=== PATIENT | male | born 1960 | race Caucasian/White ===

== ENCOUNTER 2019-12-17 13:44 | Emergency (ER) | payer BC ==
[2019-12-17] MEDS ORDERED: Bacitracin Oint 1 GM U/D Packet TOP ONE (14:06)
[2019-12-17] MEDS ORDERED: Bupivacaine 0.5%/EPINEPHrine 1:200,000 50 ML MDV NERVRT ONE (14:06)
--- NOTE | 2019-12-17 15:42 | EDM.PDOC ---
ED HPI GENERAL MEDICAL PROBLEM - General Chief Complaint: Laceration Stated Complaint: CHAINSAW CUT ON LEFT CHEEK Time Seen by Provider: 12/17/19 14:50 Source of Information: Reports: Patient, Family () History Limitations: Reports: No Limitations - History of Present Illness INITIAL COMMENTS - FREE TEXT/NARRATIVE: 59 year old male present to [facility] for evaluation of facial laceration. Patient clearing some brush at the cabin when the chain saw bounced off a small branch kick back and struck him on the left side of his face results in a laceration. Injured occurred at approximately 12: 30 this afternoon. Patient's state the chain saw struck his glasses and cut his left anterior lateral cheek. Patient has localized pain the area. He has not vision concerns, able to move all the muscle on the left side of his face and denies numbness. Patient noted the area bled at lot placed a pressure dressing and ice pack to control the bleeding. drove him to the ER which is approximately 1 hour from the cabin. Patient believes his tetanus shot is up to date. - Related Data Allergies Allergy/AdvReac Type Severity Reaction Status Date / Time No Known Allergies Allergy Verified 12/17/19 13:53 Home Meds: Home Meds Omeprazole 20 mg PO BEDTIME 12/17/19 [History] Simvastatin 20 mg PO BEDTIME 12/17/19 [History] Past Medical History HEENT History: Reports: Impaired Vision Cardiovascular History: Reports: High Cholesterol Gastrointestinal History: Reports: None Musculoskeletal History: Reports: Back Pain, Chronic Endocrine/Metabolic History: Reports: Obesity/BMI 30+ - Past Surgical History Head Surgeries/Procedures: Reports: None HEENT Surgical History: Reports: None Cardiovascular Surgical History: Reports: None GI Surgical History: Reports: Appendectomy Endocrine Surgical History: Reports: None Musculoskeletal Surgical History: Reports: Hip Replacement Dermatological Surgical History: Reports: None Social & Family History - Tobacco Use Smoking Status *Q: Never Smoker Second Hand Smoke Exposure: No - Caffeine Use Caffeine Use: Reports: Coffee - Alcohol Use Days Per Week of Alcohol Use: 3 Number of Drinks Per Day: 2 Total Drinks Per Week: 6 - Recreational Drug Use Recreational Drug Use: No ED ROS GENERAL - Review of Systems Review Of Systems: Comprehensive ROS is negative, except as noted in HPI. ED EXAM, SKIN/RASH Exam: See Below Exam Limited By: No Limitations General Appearance: Alert, WD/WN, Mild Distress (due to injury and bleeding. ) Eye Exam: Bilateral Eye: EOMI, Normal Inspection Ears: Normal External Exam, Normal Canal, Hearing Grossly Normal Nose: Normal Inspection, Normal Mucosa Throat/Mouth: Normal Inspection, Normal Voice, No Airway Compromise Head: Other (parallel lacerations with central strip of non-viable tissue and wide defect at due to chain saw ) Neck: Normal Inspection, Supple, Full Range of Motion Respiratory/Chest: No Respiratory Distress, Lungs Clear, Normal Breath Sounds, Chest Non-Tender Cardiovascular: Normal Peripheral Pulses, Regular Rate, Rhythm GI/Abdominal: Non-Tender (Male) Exam: Deferred Rectal (Males) Exam: Deferred Extremities: Normal Inspection, Normal Range of Motion Neurological: Alert, Oriented, CN II-XII Intact, Normal Cognition, Normal Gait, Normal Reflexes, No Motor/Sensory Deficits Psychiatric: Normal Affect, Normal Mood Skin: Warm, Dry Location, Skin: Face (parallel lacerations with central strip of non-viable tissue and wide defect at due to chain saw ) ED SKIN PROCEDURES - Laceration/Wound Repair Left Anterior Lateral Face Appearance: Muscle Distal NVT: Neuro & Vascular Intact, No Tendon Injury Anesthetic Type: Local Local Anesthesia - Bupivicaine (Marcaine): 0.5% with EPI Local Anesthetic Volume: Other (8 cc) Skin Prep: Chlorhexidine (Hibiciens), Saline Saline Irrigation (cc's): 250 Exploration/Debridement/Repair: Wound Explored, In a Bloodless Field, Explored to Base, Moderate Debridement, Foreign Material Removed, Wound Margins Revised (of not viable tissue) Closed with: Sutures Lac/Wound length In cm: 6.0 Suture Size: 6-0 # of Sutures: 18 Suture Type: Prolene Suture Size: 5-0 # of Sutures: 6 Repaired with: Other (monocryl) Drain Placement: No Sterile Dressing Applied: Provider Tetanus Status Addressed: Yes (Patient believes he is upto date, plans to discuss with PCP during appointment in January.) Complications: Yes Complication Description: Second laceation which resulted in a 3.5 cm x 0.5 cm defect with TWO Sutures to proximate deepest most lateral margin mesaureing 1.0 cm. The remainer of the inferior 4.5 cm was left open as depth was minimnal and would cause pooer cosmetic results due to missing tissue from Chain saw injury Course - Vital Signs Last Recorded V/S: Last Vital Signs Temp 35.8 C L 12/17/19 14:00 Pulse 92 12/17/19 15:38 Resp 14 12/17/19 14:00 BP 145/98 H 12/17/19 15:38 Pulse Ox 95 12/17/19 14:00 - Orders/Labs/Meds Orders: Active Orders 24 hr Category Date Time Status Vital Signs [RC] PFP Care 12/17/19 15:48 Active Meds: Medications Discontinued Medications Generic Name Dose Route Start Last Admin Trade Name Isabel PRN Reason Stop Dose Admin Bacitracin 1 dose 12/17/19 14:06 12/17/19 14:13 Bacitracin Oint 1 Gm TOP 12/17/19 14:07 1 dose ONETIME ONE Administration Bupivacaine HCl/Epinephrine Bitart 50 ml 12/17/19 14:06 12/17/19 14:13 Marcaine 0.5%/Epinephrine 1:200,000 NERVRT 12/17/19 14:07 50 ml ONETIME ONE Administration Departure - Departure Time of Disposition: 15:45 Disposition: Home, Self-Care 01 Clinical Impression: Laceration of face with complication - Discharge Information Instructions: Laceration Care, Adult, Sutures, Shauna, or Adhesive Wound Closure, Nonsutured Laceration Care Referrals: PCP,None [Primary Care Provider] - Forms: ED Department Discharge Additional Instructions: 1. wound covered until Thursday morning. Then cleanse wound with soapy and water and apply topical antibiotic ointment if open. May leave open stable scab has formed. 2. You may shower but avoid any directed water over bandage. 3. Tylenol or Ibuprofen for pain as needed. 3. Apply pressure if bleeding occurs and change dressing if it become saturated or dirty. 4. Call PCP for wound check if infection concerns noted in the next 3-5 days. 5. Suture removal recommended in 5-7 days to prevent. 6. Sunscreen spf 30+ is important the first year after injury to prevent permanent pigmentation changes in the area. Sepsis Event Note (ED) - Evaluation Sepsis Screening Result: No Definite Risk - Focused Exam Vital Signs: Vital Signs Temp Pulse Resp BP Pulse Ox 12/17/19 15:38 92 145/98 H 12/17/19 14:17 98 138/91 H 12/17/19 14:00 35.8 C L 110 H 14 171/112 H 95 12/17/19 13:54 35.8 C L 110 H 14 171/112 H 95 - My Orders Last 24 Hours: My Active Orders 12/17/19 15:48 Vital Signs [RC] PFP - Assessment/Plan Last 24 Hours: My Active Orders 12/17/19 15:48 Vital Signs [RC] PFP
== END 2019-12-17 16:01 | disposition home or self-care (01) ==
LOC: JP.ED 13:44
DX: S01.412A Laceration without foreign body of left cheek and temporomandibular area, initial encounter (principal); E78.00 Pure hypercholesterolemia, unspecified; E66.9 Obesity, unspecified; Z68.33 Body mass index [BMI] 33.0-33.9, adult; Z79.899 Other long term (current) drug therapy; W22.8XXA Striking against or struck by other objects, initial encounter
CPT/HCPCS: 12013; 12053; 99282; J3490